=== PATIENT | female | born 1985 | race Hispanic/Latino ===

== ENCOUNTER 2019-02-17 23:18 | Emergency (ER) | payer OTHER ==
[2019-02-18 00:04] LABS: APPEARANCE,URINE Cloudy (CLEAR); BILIRUBIN,URINE Negative (NEGATIVE); COLOR,URINE Dark Yellow (YELLOW); GLUCOSE, URINE (UA) Negative (NEGATIVE); KETONES,URINE Negative (NEGATIVE); LEUKOCYTE ESTERASE ,URINE Large (NEGATIVE); NITRATE,URINE Positive (NEGATIVE); OCCULT BLOOD,URINE Small (NEGATIVE); PH,URINE 6.5 (5.0-8.0); PROTEIN,URINE Negative (NEGATIVE)
[2019-02-18 00:05] LABS: HCG,QUAL RESULT NEGATIVE (NEGATIVE)
[2019-02-18] MEDS ORDERED: LIDOCAINE HCL-MPF 1% 2ML VIAL ONE (00:13)
[2019-02-18] MEDS ORDERED: CEFTRIAXONE SODIUM 1 GM ONE (00:13)
[2019-02-18 00:29] LABS: WBC,URINE 26-50 /HPF (0-1)
[2019-02-18 00:30] LABS: BACTERIA,URINE Few /HPF (None Seen)
== END 2019-02-18 00:43 | disposition home or self-care (01) ==
LOC: EDH 23:18
DX: N39.0 Urinary tract infection, site not specified (principal)
CPT/HCPCS: 81001; 81025; 87088; 96372; 99283; J0696; J3490

== ENCOUNTER 2019-04-16 12:44 | Emergency (ER) | payer OTHER ==
[2019-04-16 13:06] LABS: APPEARANCE,URINE CLOUDY (CLEAR); BILIRUBIN,URINE NEGATIVE (NEGATIVE); COLOR,URINE YELLOW (YELLOW); GLUCOSE, URINE (UA) NEGATIVE (NEGATIVE); KETONES,URINE NEGATIVE (NEGATIVE); LEUKOCYTE ESTERASE ,URINE NEGATIVE (NEGATIVE); NITRATE,URINE NEGATIVE (NEGATIVE); OCCULT BLOOD,URINE NEGATIVE (NEGATIVE); PROTEIN,URINE TRACE mg/dL (NEGATIVE)
[2019-04-16 13:32] LABS: BACTERIA,URINE Rare /HPF (None Seen); MUCUS,URINE Few LPF (None Seen); RBC,URINE 0-1 /HPF (0-1); SQUAMOUS EPITHELIAL CELL,UR Few /HPF (0-2); WBC,URINE 51-100 /HPF (0-1)
[2019-04-16] MEDS ORDERED: LIDOCAINE HCL-MPF 1% 2ML VIAL ONE (13:40)
[2019-04-16] MEDS ORDERED: CEFTRIAXONE SODIUM 500 MG VIAL ONE (13:40)
[2019-04-16] MEDS ORDERED: AZITHROMYCIN 250 MG TABLET PO ONE (13:41)
[2019-04-16] MEDS ORDERED: ONDANSETRON ODT 4 MG TAB ONE (13:41)
== END 2019-04-16 14:20 | disposition home or self-care (01) ==
LOC: EDH 12:44
DX: R30.0 Dysuria (principal); R35.0 Frequency of micturition
CPT/HCPCS: 81001; 81025; 87486; 87797; 96372; 99284; J0696; J3490

== ENCOUNTER 2019-09-08 10:33 | Emergency (ER) | payer OTHER ==
[2019-09-08 10:48] LABS: APPEARANCE,URINE Clear (CLEAR); BILIRUBIN,URINE Negative (NEGATIVE); COLOR,URINE Yellow (YELLOW); GLUCOSE, URINE (UA) Negative (NEGATIVE); KETONES,URINE Negative (NEGATIVE); LEUKOCYTE ESTERASE ,URINE Large (NEGATIVE); NITRATE,URINE Negative (NEGATIVE); OCCULT BLOOD,URINE Moderate (NEGATIVE); PROTEIN,URINE Negative (NEGATIVE); UROBILINOGEN,URINE 0.2 mg/dL (0.2-1.0)
[2019-09-08 10:52] LABS: HCG,QUAL RESULT NEGATIVE (NEGATIVE)
[2019-09-08 10:58] LABS: BACTERIA,URINE Few /HPF (None Seen)
[2019-09-08 10:59] LABS: RBC,URINE 0-1 /HPF (0-1)
[2019-09-08] MEDS ORDERED: NITROFURANTOIN MONOHYD/M-CRYST 100 MG CAPSULE PO ONE (11:04)
[2019-09-08] MEDS ORDERED: IBUPROFEN 600 MG TABLET ONE (11:04)
== END 2019-09-08 11:39 | disposition home or self-care (01) ==
LOC: EDH 10:33
DX: N39.0 Urinary tract infection, site not specified (principal)
CPT/HCPCS: 81001; 81025; 87077; 87088; 87186

== ENCOUNTER 2020-05-21 01:05 | Emergency (ER) | payer OTHER | END 2020-05-21 02:11 | disposition home or self-care (01) | LOC: EDH 01:05 | DX: F41.9 Anxiety disorder, unspecified (principal); F43.10 Post-traumatic stress disorder, unspecified; Z98.890 Other specified postprocedural states ==